=== PATIENT | female | born 1995 | race Caucasian/White ===

== ENCOUNTER 2018-09-26 23:09 | Emergency (ER) | payer OTHER ==
[~2018-09-26] VITALS: Ht 162.6 cm; Wt 108.9 kg
[2018-09-26 23:18] VITALS: Ht 162.6 cm; Wt 108.9 kg
[2018-09-27 00:43] VITALS: BP 124/76
== END 2018-09-27 00:43 | disposition home or self-care (01) ==
LOC: ED 23:09
DX: J45.901 Unspecified asthma with (acute) exacerbation (principal); E78.00 Pure hypercholesterolemia, unspecified; Z86.2 Personal history of diseases of the blood and blood-forming organs and certain disorders involving the immune mechanism
CPT/HCPCS: J7512; J7613; J7644

== ENCOUNTER 2019-06-17 10:30 | Emergency (ER) | payer OTHER ==
[~2019-06-17] VITALS: Ht 157.5 cm; Wt 121.3 kg
[2019-06-17 10:52] VITALS: Ht 157.5 cm; Wt 121.3 kg
[2019-06-17 12:33] VITALS: BP 131/83
== END 2019-06-17 12:33 | disposition home or self-care (01) ==
LOC: ED 10:30
DX: J06.9 Acute upper respiratory infection, unspecified (principal); R30.0 Dysuria; J45.909 Unspecified asthma, uncomplicated; E78.00 Pure hypercholesterolemia, unspecified
CPT/HCPCS: 87804

== ENCOUNTER 2019-07-19 20:41 | Emergency (ER) | payer OTHER ==
[~2019-07-19] VITALS: Ht 160 cm; Wt 122.5 kg
[2019-07-19 20:49] VITALS: Ht 160 cm; Wt 122.5 kg
[2019-07-19 21:54] LABS: BASOPHIL % 0.5 % (0-2); PLATELET COUNT 225 x10^3mcL (130-400); RED CELL DISTRIBUTION WIDTH 13.2 % (11.5-14.5)
[2019-07-19 23:24] LABS: CALCIUM 8.4 mg/dL (8.5-10.1); CARBON DIOXIDE 24.8 mmol/L (21-32); CHLORIDE SERUM 109 mmol/L (98-107); CREATININE SERUM 0.7 mg/dL (0.6-1.0); GFR1 > 60 mL/min; GLUCOSE SERUM 96 mg/dL (74-106); POTASSIUM SERUM 3.6 mmol/L (3.5-5.1); SODIUM SERUM 144 mmol/L (136-145)
[2019-07-20 02:04] VITALS: BP 130/76
== END 2019-07-20 02:04 | disposition home or self-care (01) ==
LOC: ED 20:41
PROVIDERS: Emergency Medicine
DX: N94.6 Dysmenorrhea, unspecified (principal); N93.9 Abnormal uterine and vaginal bleeding, unspecified
CPT/HCPCS: 36415; J1885; Q0162

== ENCOUNTER 2019-09-03 22:48 | Emergency (ER) | payer OTHER ==
[~2019-09-03] VITALS: Ht 160 cm; Wt 122.0 kg
[2019-09-03 22:51] VITALS: Ht 160 cm; Wt 122.0 kg
[2019-09-03 23:54] LABS: BASOPHIL % 0.6 % (0-2); PLATELET COUNT 239 x10^3mcL (130-400); RED CELL DISTRIBUTION WIDTH 13.3 % (11.5-14.5)
[2019-09-04 00:03] LABS: CALCIUM 8.9 mg/dL (8.5-10.1); CHLORIDE SERUM 108 mmol/L (98-107); CREATININE SERUM 0.8 mg/dL (0.6-1.0); GFR1 > 60 mL/min; GLUCOSE SERUM 117 mg/dL (74-106); POTASSIUM SERUM 3.2 mmol/L (3.5-5.1); SODIUM SERUM 143 mmol/L (136-145)
[2019-09-04 00:07] LABS: ALBUMIN 3.4 g/dL (3.4-5.0); ALKALINE PHOSPHATASE 75 U/L (46-116); ALT/SGPT 52 U/L (14-59); AST/SGOT 24 U/L (15-37); BILIRUBIN TOTAL 0.1 mg/dL (0.20-1.00); TOTAL PROTEIN, SERUM 7.5 g/dL (6.4-8.2)
[2019-09-04 00:39] VITALS: BP 107/64
== END 2019-09-04 00:39 | disposition home or self-care (01) ==
LOC: ED 22:48
PROVIDERS: Emergency Medicine
DX: R42 Dizziness and giddiness (principal); J45.909 Unspecified asthma, uncomplicated; E78.00 Pure hypercholesterolemia, unspecified
CPT/HCPCS: 36415; J8597

== ENCOUNTER 2019-12-09 22:38 | Emergency (ER) | payer OTHER ==
[~2019-12-09] VITALS: Ht 160 cm; Wt 118.8 kg
[2019-12-09 22:46] VITALS: Ht 160 cm; Wt 118.8 kg
[2019-12-09 23:42] LABS: BASOPHIL % 0.7 % (0-2); PLATELET COUNT 180 x10^3mcL (130-400); RED CELL DISTRIBUTION WIDTH 13.7 % (11.5-14.5)
[2019-12-09 23:56] LABS: ALBUMIN 3.5 g/dL (3.4-5.0); ALKALINE PHOSPHATASE 78 U/L (46-116); ALT/SGPT 50 U/L (14-59); AST/SGOT 33 U/L (15-37); BILIRUBIN TOTAL 0.2 mg/dL (0.20-1.00); CALCIUM 8.3 mg/dL (8.5-10.1); CARBON DIOXIDE 23.9 mmol/L (21-32); CHLORIDE SERUM 105 mmol/L (98-107); CREATININE SERUM 0.9 mg/dL (0.6-1.0); GFR1 > 60 mL/min; GLUCOSE SERUM 88 mg/dL (74-106); LIPASE 97 IU/L (73-393); SODIUM SERUM 140 mmol/L (136-145); TOTAL PROTEIN, SERUM 7.7 g/dL (6.4-8.2)
[2019-12-10 01:30] VITALS: BP 125/72
== END 2019-12-10 01:30 | disposition home or self-care (01) ==
LOC: ED 22:38
DX: K29.70 Gastritis, unspecified, without bleeding (principal); J45.909 Unspecified asthma, uncomplicated; E78.00 Pure hypercholesterolemia, unspecified; Z86.2 Personal history of diseases of the blood and blood-forming organs and certain disorders involving the immune mechanism
CPT/HCPCS: 36415; Q0092; Q0162

== ENCOUNTER 2019-12-21 15:51 | Emergency (ER) | payer OTHER ==
[~2019-12-21] VITALS: Ht 177.8 cm; Wt 108.9 kg
[2019-12-21 16:18] VITALS: Ht 177.8 cm; Wt 108.9 kg
[2019-12-21 18:02] LABS: PLATELET COUNT 253 x10^3mcL (130-400); RED CELL DISTRIBUTION WIDTH 13.6 % (11.5-14.5)
[2019-12-21 18:24] LABS: CALCIUM 8.5 mg/dL (8.5-10.1); CARBON DIOXIDE 26.5 mmol/L (21-32); CHLORIDE SERUM 106 mmol/L (98-107); CREATININE SERUM 0.8 mg/dL (0.6-1.0); GFR1 > 60 mL/min; GLUCOSE SERUM 81 mg/dL (74-106); POTASSIUM SERUM 3.6 mmol/L (3.5-5.1); SODIUM SERUM 144 mmol/L (136-145)
[2019-12-21 18:29] LABS: ALBUMIN 3.3 g/dL (3.4-5.0); ALKALINE PHOSPHATASE 68 U/L (46-116); ALT/SGPT 44 U/L (14-59); AST/SGOT 15 U/L (15-37); BILIRUBIN TOTAL 0.6 mg/dL (0.20-1.00); TOTAL PROTEIN, SERUM 7.4 g/dL (6.4-8.2)
[2019-12-21 19:30] LABS: BAND NEUTROPHIL 2 % (0-10); MONOCYTE 11 % (0-7); SEGMENTED NEUTROPHILS 65 % (37-75)
[2019-12-21 19:31] LABS: PLATELET MORPHOLOGY FEW LARGE PLATELET; rbc morphology (normal/abnorm) NORMAL (NORMAL)
[2019-12-21 20:22] VITALS: BP 117/66
[2019-12-21 20:24] LABS: UA SPECIFIC GRAVITY 1.025 (1.005-1.035); microscopic required? YES; urine erythrocyte NEGATIVE (NEGATIVE)
== END 2019-12-21 20:22 | disposition home or self-care (01) ==
LOC: ED 15:51
PROVIDERS: Student in an Organized Health Care Education/Training Program
DX: M62.831 Muscle spasm of calf (principal); M79.604 Pain in right leg; J45.909 Unspecified asthma, uncomplicated; E78.00 Pure hypercholesterolemia, unspecified
CPT/HCPCS: 83880; J1885; Q0092

== ENCOUNTER 2020-04-15 11:48 | Emergency (ER) | payer OTHER ==
[~2020-04-15] VITALS: Ht 160 cm; Wt 119.7 kg
[2020-04-15 12:21] VITALS: Ht 160 cm; Wt 119.7 kg
[2020-04-15 14:03] LABS: BASOPHIL % 0.5 % (0-2); PLATELET COUNT 227 x10^3mcL (130-400); RED CELL DISTRIBUTION WIDTH 13.5 % (11.5-14.5)
[2020-04-15 14:07] LABS: UA SPECIFIC GRAVITY 1.025 (1.005-1.035); microscopic required? YES; urine erythrocyte TRACE (NEGATIVE)
[2020-04-15 14:13] LABS: CALCIUM 8.7 mg/dL (8.5-10.1); CHLORIDE SERUM 105 mmol/L (98-107); CREATININE SERUM 0.7 mg/dL (0.6-1.0); GFR1 > 60 mL/min; GLUCOSE SERUM 87 mg/dL (74-106); POTASSIUM SERUM 3.8 mmol/L (3.5-5.1); SODIUM SERUM 138 mmol/L (136-145)
[2020-04-15 14:17] LABS: ALBUMIN 3.6 g/dL (3.4-5.0); ALKALINE PHOSPHATASE 83 U/L (46-116); ALT/SGPT 46 U/L (14-59); AST/SGOT 21 U/L (15-37); BILIRUBIN TOTAL 0.3 mg/dL (0.20-1.00); TOTAL PROTEIN, SERUM 7.6 g/dL (6.4-8.2)
[2020-04-15 14:42] VITALS: BP 117/79
== END 2020-04-15 14:42 | disposition home or self-care (01) ==
LOC: ED 11:48
PROVIDERS: Emergency Medicine
DX: R60.0 Localized edema (principal); R63.5 Abnormal weight gain; E78.00 Pure hypercholesterolemia, unspecified; J45.909 Unspecified asthma, uncomplicated